=== PATIENT | female | born 1990 | race Caucasian/White ===

== ENCOUNTER 2019-01-09 11:30 | Outpatient (CLI) | payer OTHER ==
[~2019-01-09] VITALS: Ht 162.6 cm; Wt 145.5 kg
== END 2019-01-09 11:46 ==
LOC: PREOP 11:30
PROVIDERS: ATTEND Surgery
DX: Z01.818 Encounter for other preprocedural examination (principal)

== ENCOUNTER 2019-01-14 10:06 | Day surgery (SDC) | payer OTHER ==
[2019-01-14] VITALS (12 sets, daily range): BP systolic 117–141; BP diastolic 71–93
[~2019-01-14] VITALS: Ht 162.6 cm; Wt 145.5 kg
--- NOTE | 2019-01-14 10:37 | Progress Note-Pre Operative ---
Pre-Operative Progress Note H&P Reviewed The H&P was reviewed, patient examined and no changes noted. Time Seen by Provider: 10:36 Date H&P Reviewed: Jan 14, 2019 Time H&P Reviewed: 10:35 Pre-Operative Diagnosis: Cholelithiasis/Cholecystitis ANA MARÍA MORRISON DO Jan 14, 2019 10:37 POS
[2019-01-14] MEDS ORDERED: ceFAZolin 2 GM/50 ML NS 50 ML IV ONE (10:45)
[2019-01-14 11:17] LABS: BASOPHILS % (AUTO) 0 % (0-10); EOSINOPHILS # (AUTO) 0.5 10^3/uL (0.0-0.3); EOSINOPHILS % (AUTO) 5 % (0-10); HEMATOCRIT 43 % (35-52); HEMOGLOBIN 13.9 G/DL (11.5-16.0); LYMPHOCYTES # (AUTO) 2.2 X 10^3 (1.0-4.0); LYMPHOCYTES % (AUTO) 25 % (12-44); MEAN CORPUSCULAR HEMOGLOBIN 30 PG (25-34); MEAN CORPUSCULAR HGB CONC 33 G/DL (32-36); MEAN CORPUSCULAR VOLUME 93 FL (80-99); MEAN PLATELET VOLUME 10.8 FL (7.4-10.4); MONOCYTES # (AUTO) 0.6 X 10^3 (0.0-1.0); MONOCYTES % (AUTO) 7 % (0-12); NEUTROPHILS # (AUTO) 5.6 X 10^3 (1.8-7.8); NEUTROPHILS % (AUTO) 63 % (42-75); PLATELET COUNT 203 10^3/uL (130-400); RED CELL DISTRIBUTION WIDTH 13.2 % (10.0-14.5); WHITE BLOOD COUNT 8.9 10^3/uL (4.3-11.0)
[2019-01-14] MEDS: LACTATED RINGERS 1,000 ML IV PRN ×2 (11:18→13:33)
[2019-01-14] MEDS ORDERED: IOPAMIDOL 61% 30 ML (ISOVUE 300) VIAL IV ONE (11:50)
[2019-01-14] MEDS ORDERED: BUP/EPI 0.5% 1:200,000 (MARCAINE) 10ML VIAL IJ ONE (11:50)
[2019-01-14] MEDS ORDERED: DEXAMETHASONE 10 MG/ML (DECADRON) 1 ML VIAL ONE (12:03)
[2019-01-14] MEDS ORDERED: proPOfol 200 MG/20 ML (DIPRIVAN) VIAL IV ONE ×2 (12:03→14:20)
[2019-01-14] MEDS ORDERED: MIDAZOLAM 2 MG/2 ML (VERSED) VIAL ONE (12:03)
[2019-01-14] MEDS ORDERED: LIDOCAINE PF 2% 5 ML (XYLOCAINE) VIAL ONE ×2 (12:03→14:20)
[2019-01-14] MEDS ORDERED: ROCURONIUM 10 MG/ML 5 ML SYRINGE IV ONE ×3 (12:03→14:20)
[2019-01-14] MEDS ORDERED: ONDANSETRON 4 MG/2 ML (SDV) Z0FRAN ONE (12:03)
[2019-01-14] MEDS ORDERED: fentaNYL INJECTION 100 MCG/2 ML AMP ONE (12:03)
[2019-01-14] MEDS ORDERED: SEVOFLURANE (ULTANE) 15 ML INHAL SOLN ONE ×9 (12:09→14:24)
[2019-01-14] MEDS ORDERED: HYDROmorphone 2 MG/ML VIAL (DILAUDID) ONE (12:33)
[2019-01-14] MEDS ORDERED: NEOSTIGMINE 3 MG/3 ML VIAL ONE (14:19)
[2019-01-14] MEDS ORDERED: GLYCOPYRROLATE 0.2 MG/ML (ROBINUL) 2 ML VIAL ONE (14:19)
[2019-01-14] MEDS ORDERED: PHENYLEPHRINE 100 MCG/ML 10 ML (ANESTHESIA) SYR ONE (14:21)
--- NOTE | 2019-01-14 14:47 | Diagnostic Imaging Report ---
INDICATION: Undergoing cholecystectomy, abdominal pain. FINDINGS: Cine image with 77 images along with a single image over the right upper quadrant intraoperative cholangiogram images are submitted. There is cannulation of the extra hepatic biliary tree. Images demonstrate contrast opacification of the biliary system. Biliary tree is not significantly dilated. There is small filling defect in the low common bile duct. This is somewhat indeterminate does appear to have progressively decrease on delayed images. This could be reflective of some debris or air bubble. Small stones however not excluded. There is subsequent migration of contrast into the duodenum. IMPRESSION: Intraoperative cholangiogram demonstrates a nondilated biliary tree. There are filling defects low common bile duct which are somewhat indeterminate. Correlation with intraoperative findings recommended. Fluoroscopy time: 13 seconds Dictated by: Dictated on workstation # [id number]
--- NOTE | 2019-01-14 14:55 | Progress Note-Post Operative ---
Post-Operative Progess Note Surgeon (s)/Clerical Office Worker (s) Surgeon ANA MARÍA MORRISON DO Clerical Office Worker: Doroteo Pre-Operative Diagnosis Cholelithiasis/Cholecystitis Post-Operative Diagnosis same, intrahepatic GB ??choledochalithiasis Procedure & Operative Findings Date of Procedure 01/14/19 Procedure Performed/Findings Lap vandana with IOC Anesthesia Type GET Estimated Blood Loss Estimated blood loss (mL): minimal Specimens/Packing Specimens Removed GB and contents ANA MARÍA MORRISON DO Jan 14, 2019 14:55 POS
[2019-01-14] MEDS ORDERED: HYDR-3820 PO (14:56)
--- NOTE | 2019-01-14 14:57 | Discharge Inst-Surgical ---
Discharge Inst-Surgical Depart Medication/Instructions New, Converted or Re-Newed RX: RX Given to Pt/Family Patient Instructions Follow up Appt: Make appointment for 1 week. [phone] Instructions: No lifting greater than 20 pounds. No strenuous activity. May shower in 24 hours, no tub bath or soaking. Use incentive spirometer at home as directed. No Smoking Skin/Wound Care: May remove bandages in am. You need to leave the Dermabond on incision it will fall off on it's own. Symptoms to Report: Appetite Changes, Extremity Discoloration, Numbness/Tingling, Swelling Increased, Bleeding Excessive, Eyesight Changes, Pain Increased, Urine Color Change, Constipation(Persistent), Fever over 101 degree F, Pain/Pressure in chest, Urinating Difficulty, Cough Up/Vomit Blood, Heart Beat Irreg/Pounding, Pain/Pressure in jaw, Cramps in feet or legs, Lightheadedness, Pain/Pressure in shoulder, Diarrhea(Persistent), Memory Changes Suddenly, Questions/Concerns, Weight gain consecutive days, Dizziness/Fainting, Nausea/Vomiting, Shortness of Breath, Weight gain over 2 pounds If questions or concerns contact your physician Or seek help at emergency department. Activity Activity as Tolerated: Yes Activity Instructions: Avoid Stress to Incision Driving Instructions: No Driving/Refer to Diet Discharge Diet: Avoid Fatty Foods, Low Fat/Low Cholesterol Diet After 24 Hours: Clear Liquid if Nauseous If Any Problems/Questions/Issu: Contact Your Physician, Go to Emergency Room, Go to Quick Care Skin/Wound Care Infection Signs and Symptoms: Increased Redness, Foul Odor of Wound, Increased Drainage, Skin Itchy or Has a Rash, Increased Swelling, Temperature Above 101 F Wound Care Comment: heating pad to shoulder and neck tonight for pain Bathing Instructions: Shower Stitches/[place]/Dermabond Dis: Dermabond Ice Pack: Ice On and Off Site (as needed at incisions for pain) ANA MARÍA MORRISON DO Jan 14, 2019 14:57 POS
[2019-01-14] MEDS ORDERED: HYDROmorphone 2 MG/ML VIAL (DILAUDID) IV ONE (15:15)
[2019-01-14] MEDS ORDERED: ONDANSETRON 4 MG/2 ML (SDV) Z0FRAN IVP PRN (15:15)
[2019-01-14] MEDS ORDERED: morphine INJ 10 MG/ML 1ML (SYR OR VIAL) IVP ONE (15:15)
--- NOTE | 2019-01-14 15:15 | Anesthesia-General Post-Op ---
General Patient Condition Mental Status/LOC: Same as Preop Cardiovascular: Satisfactory Nausea/Vomiting: Absent Respiratory: Satisfactory Pain: Controlled Complications: Absent Post Op Complications Complications None Follow Up Care/Instructions Patient Instructions None needed. Anesthesia/Patient Condition Patient Condition Patient is doing well, no complaints, stable vital signs, no apparent adverse anesthesia problems. DERIAN AJ DO Jan 14, 2019 15:15 POS
[2019-01-14] MEDS ORDERED: morphine INJ 10 MG/ML 1ML (SYR OR VIAL) ONE (15:25)
--- NOTE | 2019-01-14 15:50 | NUR ---
TO AMB SURG FROM PAR PER CART, O2 AT 3L PER MASK ON ARRIVAL TO ROOM FOR SAO2 90% ON ROOM AIR. AWAKENS TO COMMAND, MOANS AND THRASHES AROUND IN BED. STATES RUQ ABD "REALLY HURTS!" BUT IS QUICKLY BACK TO SLEEP. DERMABOND INTACT TO X5 LAP ABD SURGICAL SITES WITH ICE PACK ON. BED LOW, LOCKED, RAILS UP X2. CALL LIGHT TO PT AND FAMILY AT SIDE.
--- NOTE | 2019-01-14 16:30 | NUR ---
RESTING QUIETLY IN BED WITH SONOROUS RESPIRATIONS. AWAKENS TO VOICE, C/O RUQ PAIN RATED 8, BUT QUICKLY BACK TO SLEEP. HAS HAD PO FLUIDS AND CRACKERS.
--- NOTE | 2019-01-14 17:30 | NUR ---
SITTING UP IN BED, PAIN RATED 5-6. STATES SHE WANTS TO GO HOME NOW. O2 DC'D. HAS BEEN INSTRUCTED ON INCENTIVE SPIROMETRY AND NOW UP TO BR WITH ASSIST, GAIT STEADY. ASSIST BACK TO ROOM.
--- NOTE | 2019-01-14 18:00 | NUR ---
CALLED TO ROOM BY FAMILY MEMBER. PT ACCIDENTALLY PULLED IV OUT OF LEFT HAND. SITE CLEANED, PRESSURE HELD AND GAUZE AND BANDAID DRESSING APPLIED.
--- NOTE | 2019-01-14 18:20 | NUR ---
SAO2 94% ON ROOM AIR. DID INCENTIVE SPIROMETRY WITH GOAL SET BY RESPIRATORY THERAPIST MET 4 OF 5 ATTEMPTS. REMAINS INTERMITTENTLY DROWSY, BUT WAKENS EASILY AND STATES SHE IS READY FOR DISMISSAL. NO CHANGE IN SURGICAL SITE ASSESSMENT. PAIN RATE 4-5, TRANSFERS SELF FROM W/C TO CAR WITH STANDBY ASSIST ONLY.
--- NOTE | 2019-01-15 15:42 | OPERATIVE REPORT ---
DATE OF SERVICE: 01/14/2019 PREOPERATIVE DIAGNOSES: Cholelithiasis, cholecystitis. POSTOPERATIVE DIAGNOSES: Cholelithiasis, cholecystitis with possible choledocholithiasis. SURGEON: Modesto Wilkins DO PIANO BUILDER: Bong Sadler DO ANESTHESIA: General endotracheal tube. SPECIMEN: Gallbladder and contents. BLOOD LOSS: Scant. FLUIDS: Per anesthesia. POSTOPERATIVE CONDITION: Stable. INDICATION FOR PROCEDURE: The patient is a 28-year-old female who has been having abdominal pain in the right upper quadrant, usually associated with fried and fatty foods and had ultrasound, which showed gallstones and wanted to get her gallbladder out. FINDINGS: The patient had adhesions of the gallbladder, which is indicative of previous gallbladder attacks. She also had a very intrahepatic gallbladder, which was long and a cholangiogram may have showed some choledocholithiasis. PROCEDURE NOTE: After informed consent was obtained, the patient was brought to the operating room, placed on the operating table in supine position. She was sterilely prepped and draped in normal fashion. Local lidocaine was used to infiltrate the skin above the umbilicus. I made the incision with #11 blade, carried down to skin and subcutaneous tissue, then deepened down through subcutaneous tissue with Bovie electrocautery down to the fascia. Fascia was incised with Bovie electrocautery and bluntly entered the abdomen, swept a finger around. The patient had a very large abdominal wall. Actually had to use extra-long KeyPort. A 12 mm port placed in there, held in place with the balloon and then created pneumoperitoneum, placed 3 more ports in a normal fashion using local lidocaine, 11 blade for stab incision and VersaStep system, all done under direct visualization. These were 5 mm ports placed 1 subxiphoid and 2 in the right upper quadrant. The patient was then placed in reverse Trendelenburg, slightly rotated left. Upon entering, noted that the liver was very large, very hard to get this out of the way, I grasp the gallbladder at the fundus taking superior direction is still hard to get down. There were adhesions to the gallbladder. These were gently taken down with blunt dissection as well as with Bovie electrocautery, able to grasp down. There was some fat around the Minerva's pouch, able to carefully dissect this out using Bovie electrocautery as well as blunt dissection and then grasped down Minerva's pouch and start dissecting out cystic duct and cystic artery. Cystic duct was very large, able to finally get around it and then identified and got around the cystic artery and placed 2 clips proximally on the cystic artery and one distally on the cystic artery and then placed one distally on the cystic duct. Cut the cystic duct assisted through Metzenbaum scissors. Placed a cholangiogram catheter and shot a cholangiogram. Good spillage of dye down the common bile duct, but it looked like there may have been some stones right down there towards the opening into the small intestine where the ampulla did go up into the common hepatic and right and left hepatics without any difficulty. At this point, I then removed the cholangiogram catheter. The duct was so large that the clip really did not stay on so we elected to cut the duct and then place an Endoloop. Had a little bit of difficulty with this and we got a corner of it, so had to place a second Endoloop to finally get this and then cut the cystic artery with Metzenbaum scissors, then started taking the gallbladder from bed of liver with L-hook cautery. This was very hard because the gallbladder was so intrahepatic, liver was basically folded around the gallbladder, took extra amount of time to finally get this out. Did get into the gallbladder with the Bovie electrocautery and a very large stone fell out. We did get the gallbladder finally off the bed of the liver. We actually had to put another 5 mm port in to help us hold the liver out of the way as well as for suctioning. Once the gallbladder was off and then placed a bag in the abdomen, placed the gallbladder placed a large stone in the bag. In the first attempt removed this back through the supraumbilical incision, the bag actually broke and this was the very tough nylon reinforced bag. I placed a second bag in there to grasp the gallbladder and the stone and then pulled this through the supraumbilical incision. Placed the port back in there, copiously irrigated with normal saline, suctioned this out, looked around. There was no bleeding. At this point, then placed the patient supine and removed all ports under direct visualization. First, placed a 5 mm camera and closed the supraumbilical incision with Cee. I did an 0 Vicryl [id number] and then a simple 0 Vicryl to help close this and then removed all ports under direct visualization, allowed pneumoperitoneum to escape, closed supraumbilical incision. Fascia was closed with the 0 Vicryls. Closed the skin with 4-0 undyed Monocryl, 3 interrupted subcuticular stitches and closed the four 5 mm incisions with a single interrupted 4-0 undyed Monocryl subcuticular stitch. Area was cleaned and dried. Dermabond placed as well as Band-Aids. The patient tolerated the procedure. Sponge, instrument and needle count correct at the end of the case. Dr. Sadler assisted me on this case; helping to make incisions, close incisions, hold anatomy out of the way and identify anatomy. Job ID: [id number] DocumentID: [id number] Dictated Date: 01/15/2019 09:34:08 Pipe Liner Date: 01/15/2019 15:41:08 Dictated By: DO JAKE JUNIOR
--- OUTSIDE RECORDS SUMMARY | 2019-02-09 00:36 | XMS REPORT | Continuity of Care Document ---
Author Organization Unknown Address Unknown Phone Unavailable Allergies Active Description Code Type Severity Reaction Onset Reported/Identified Relationship to Patient Clinical Status Yes pantoprazole [id number] Drug Allergy Unknown Rash 01/09/2019 Medications There is no data. Problems Date Dx Coded Attending Type Code Diagnosis Diagnosed By 01/09/2019 ANA MARÍA MORRISON DO Ot Z01.8 18 ENCOUNTER FOR OTHER PREPROCEDURAL EXAMIN 01/13/2019 ANA MARÍA MORRISON DO, Ot Z01.8 18 ENCOUNTER FOR OTHER PREPROCEDURAL EXAMIN 01/19/2019 ANA MARÍA MORRISON DO Ot E66.0 1 MORBID (SEVERE) OBESITY DUE TO EXCESS CA 01/19/2019 ANA MARÍA MORRISON DO Ot F17.2 10 NICOTINE DEPENDENCE, CIGARETTES, UNCOMPL 01/19/2019 ANA MARÍA MORRISON DO Ot K80.1 0 CALCULUS OF GALLBLADDER W CHRONIC CHOLEC 01/19/2019 ANA MAÍRA MORRISON DO Ot K82.8 OTHER SPECIFIED DISEASES OF GALLBLADDER 01/19/2019 ANA MARÍA MORRISON DO Ot Z68.4 3 BODY MASS INDEX (BMI) 50.0-59.9, ADULT 01/19/2019 ANA MARÍA MORRISON DO Ot 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 Results Test Result Range Methicillin resistant Staphylococcus aur eus (MRSA) screening culture - 01/14/19 10:45 Methicillin resistant Staphylococcus aureus (MRSA) scr eening culture NEG NRG Complete blood count (CBC) with automate d white blood cell (WBC) differential - 01/14/19 11:10 Blood leukocytes automated count (number/volume) 8.9 10*3/uL 4.3-11.0 Blood erythrocytes automated count (number/volume) 4.61 10*6/uL 4.35-5.85 Venous blood hemoglobin measurement (mass/volume) 13.9 g/dL 11.5-16.0 Blood hematocrit (volume fraction) 43 % 35-52 Automated erythrocyte mean corpuscular volume 93 [ foz_us] 80-99 Automated erythrocyte mean corpuscular h emoglobin (mass per erythrocyte) 30 pg 25-34 Automated erythrocyte mean corpuscular h emoglobin concentration measurement (mass/volume) 33 g/dL 32-36 Automated erythrocyte distribution width ratio 13. 2 % 10.0- 14.5 Automated blood platelet count (count/volume) 203 10*3/uL 130-400 Automated blood platelet mean volume measurement 10.8 [foz_us] 7.4-10.4 Automated blood neutrophils/100 leukocytes 63 % 42-75 Automated blood lymphocytes/100 leukocytes 25 % 12-44 Blood monocytes/100 leukocytes 7 % 0-12 Automated blood eosinophils/100 leukocytes 5 % 0-10 Automated blood basophils/100 leukocytes 0 % 0-10 Blood neutrophils automated count (number/volume) 5.6 10*3 1.8-7.8 Blood lymphocytes automated count (number/volume) 2.2 10*3 1.0-4.0 Blood monocytes automated count (number/volume) 0. 6 10*3 0.0-1.0 Automated eosinophil count 0.5 10*3/uL 0 .0-0.3 Automated blood basophil count (count/volume) 0.0 10*3/uL 0.0-0.1 Encounters ACCT No. Visit Date/Time Discharge Status Pt. Type Provider Facility Loc./Unit Complaint [id number] 01/22/2019 16:19:00 23:59:59 CLS Outpatient ANA MARÍA MORRISON DO [facility] LAB CHOLEDOCHELITHIASIS [id number] 01/14/2019 10:06:00 18:20:00 DIS Outpatient ANA MARÍA MORRISON DO [facility] SDC GALLSTONES [id number] 01/09/2019 11:30:00 019 11:46:00 DIS Outpatient ANA MARÍA MORRISON DO [facility] PREOP GALLSTONES [id number] 02/16/2019 10:15:00 P EN Preadmit ANA MARÍA MORRISON DO [facility] RAD CALCULUS OF BILE DUCT W/O CH OLANGITIS
== END 2019-01-14 18:20 | disposition home or self-care (01) ==
LOC: SDC 10:06
PROVIDERS: ATTEND Surgery
DX: K80.10 Calculus of gallbladder with chronic cholecystitis without obstruction (principal); K82.8 Other specified diseases of gallbladder; E66.01 Morbid (severe) obesity due to excess calories; F17.210 Nicotine dependence, cigarettes, uncomplicated; Z68.43 Body mass index [BMI] 50.0-59.9, adult; Z79.899 Other long term (current) drug therapy; Z88.8 Allergy status to other drugs, medicaments and biological substances; Z80.9 Family history of malignant neoplasm, unspecified
CPT/HCPCS: 36415; 84703; 85025; 87081; 88304

== ENCOUNTER → 2019-01-22 | Outpatient (CLI) | payer SELFPAY ==
[~2019-01-22] MED LIST: HYDR-3820 PO
[2019-01-22 16:58] LABS: CHLORIDE 103 MMOL/L (98-107); POTASSIUM 4.3 MMOL/L (3.6-5.0); SODIUM 141 MMOL/L (135-145)
[2019-01-22 16:59] LABS: ALANINE AMINOTRANSFERASE 27 U/L (0-55); ALBUMIN 4.1 GM/DL (3.2-4.5); ALKALINE PHOSPHATASE 56 U/L (40-136); BILIRUBIN,TOTAL 0.3 MG/DL (0.1-1.0); BUN/CREATININE RATIO 9; CALCIUM 9.6 MG/DL (8.5-10.1); CARBON DIOXIDE 25 MMOL/L (21-32); CREATININE SERUM 0.76 MG/DL (0.60-1.30); GFR ESTIMATED > 60; GLUCOSE 92 MG/DL (70-105); TOTAL PROTEIN 7.7 GM/DL (6.4-8.2)
== END ==
LOC: LAB 16:19
PROVIDERS: ATTEND Surgery
DX: K80.50 Calculus of bile duct without cholangitis or cholecystitis without obstruction (principal)
CPT/HCPCS: 36415; 80053